=== PATIENT | female | born 1995 | race Caucasian/White ===

== ENCOUNTER 2018-02-14 21:36 | Emergency (ER) | payer OTHER ==
[2018-02-14] MEDS ORDERED: TETANUS & DIPHTHERIA TOX,ADULT 0.5 ML VIAL ONE (22:39)
[2018-02-14] MEDS ORDERED: HYDROCODONE/APAP 5/325 MG TAB ONE (22:39)
--- NOTE | 2018-02-14 23:16 | ER ---
Nurse's Notes [facility] Name: Adolph Faulkner Age: 22 yrs Sex: Female : 1995 Arrival Date: 02/14/2018 Time: 21:42 Bed 26 Private MD: Diagnosis: Bitten by cat;Puncture wound without foreign body of left hand Presentation: 02/14 21:49 Presenting complaint: Patient states: "My cat bit my left thumb this morning.". aj Transition of care: patient was not received from another setting of care. Onset of symptoms was February 14, 2018. Risk Assessment: Do you want to hurt yourself or someone else? Patient reports no desire to harm self or others. Initial Sepsis Screen: Does the patient meet any 2 criteria? No. Patient's initial sepsis screen is negative. Does the patient have a suspected source of infection? No. Patient's initial sepsis screen is negative. Care prior to arrival: None. 21:49 Method Of Arrival: Ambulatory 21:49 Acuity: FABIO 4 21:58 Note Message left on [facility] Animal [facility] answering service. Triage Assessment: 21:53 Bite description: bite sustained to dorsal aspect of distal phalanx of left thumb and aj palmar aspect of distal phalanx of left thumb is full thickness, from animal, was sustained 12-24 hours ago. by a cat, animal information: vaccination(s) is unknown. General: Appears in no apparent distress. comfortable, Behavior is agitated. Neuro: Level of Consciousness is awake, alert, obeys commands, Oriented to person, place, time, situation, Appropriate for age. Respiratory: Airway is patent Respiratory effort is even, unlabored, Respiratory pattern is regular, symmetrical. Derm: Skin is intact, is healthy with good turgor, Skin is pink, warm \\T\\ dry. normal. Injury Description: Bite sustained to dorsal aspect of distal phalanx of left thumb and palmar aspect of distal phalanx of left thumb caused by a cat, is full thickness, from animal, was sustained 12-24 hours ago. 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 - Social history:: Smoking status: Patient/guardian denies using tobacco. - Ebola Screening: : Patient negative for fever greater than or equal to 101.5 degrees Fahrenheit, and additional compatible Ebola Virus Disease symptoms Patient denies exposure to infectious person Patient denies travel to an Ebola-affected area in the 21 days before illness onset No symptoms or risks identified at this time. Screenin:08 Abuse screen: Denies threats or abuse. Nutritional screening: No deficits noted. tl3 Tuberculosis screening: No symptoms or risk factors identified. Fall Risk None identified. Assessment: 22:08 General: Appears comfortable, well groomed, well developed, well nourished, Behavior is tl3 calm, cooperative, appropriate for age. Pain: Complains of pain in palmar aspect of distal phalanx of left thumb and dorsal aspect of distal phalanx of left thumb Pain began last night. Neuro: Level of Consciousness is awake, alert, obeys commands, Oriented to person, place, time, situation, Appropriate for age. Cardiovascular: Patient's skin is warm and dry. Respiratory: Airway is patent Respiratory effort is even, unlabored, Respiratory pattern is regular, symmetrical. GI: No deficits noted. No signs and/or symptoms were reported involving the gastrointestinal system. : No deficits noted. No signs and/or symptoms were reported regarding the genitourinary system. EENT: No deficits noted. No signs and/or symptoms were reported regarding the EENT system. Derm: Skin is red, Skin temperature is warm Wound noted palmar aspect of distal phalanx of left thumb and dorsal aspect of distal phalanx of left thumb Wound is cat bite from last night. 22:12 Reassessment: pt reports that she has cleaned wound three times with hydrogen peroxide tl3 then put triple abx covered with a bandaid. pain and swelling continues. No swollen lymph nodes under left arm appreciated. Vital Signs: 21:53 BP 129 / 74; Pulse 89; Resp 18; Temp 98.9; Pulse Ox 98% on R/A; Weight 102.06 kg; aj Height 5 ft. 6 in. (167.64 cm); 23:31 BP 122 / 78; Pulse 80; Resp 18; Pulse Ox 100% on R/A; Pain 0/10; mg2 21:53 Body Mass Index 36.32 (102.06 kg, 167.64 cm) aj ED Course: 21:42 Patient arrived in ED. am2 21:47 Sudhakar Solares, RN is Primary Nurse. mg2 21:48 Serafin Altman, JLUIAN is PHCP. pm1 21:49 Trino Reddy MD is Attending Physician. pm1 21:50 Triage completed. aj 21:53 Arm band placed on right wrist. Patient placed in an exam room. aj 22:08 Patient has correct armband on for positive identification. Bed in low position. Adult tl3 w/ patient. 22:08 No provider procedures requiring assistance completed. Patient did not have IV access tl3 during this emergency room visit. 22:12 Nurse Practitioner and/or Physician Hand Twister to see patient. Serafin at bedside for tl3 assessment. 22:56 Hand Left 3 View XRAY In Process Unspecified. EDMS 23:16 Deng Stovall MD is Referral Physician. 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 Exp: mg2 03/23/2020. Lot #: [id number]. } Route: IM; Site: right deltoid; 23:31 Follow up: Response: No adverse reaction mg2 23:30 Drug: Augmentin 875 mg Route: PO; mg2 23:31 Follow up: Response: No adverse reaction; Medication administered at discharge. mg2 Outcome: 23:16 Discharge ordered by . pm1 23:31 Discharged to home ambulatory, with family. mg2 23:31 Condition: stable 23:31 Discharge instructions given to patient, family, Instructed on discharge instructions, follow up and referral plans. medication usage, Demonstrated understanding of instructions, follow-up care, medications, Prescriptions given X 2. 23:32 Patient left the ED. mg2 Signatures: Dispatcher [employer] EDVianey Cummings, RN RN aj Serafin Altman, ALARM INSTALLATION TECHNICIAN ALARM INSTALLATION TECHNICIAN pm1 Vianey Villasenor am2 Stephenie Rowell RN RN tl3 Sudhakar Solares RN RN mg2
--- NOTE | 2018-02-14 23:17 | EDPHYS ---
Physician Documentation [facility] Name: Adolph Faulkner Age: 22 yrs Sex: Female : 1995 Arrival Date: 02/14/2018 Time: 21:42 Bed 26 Private MD: ED Physician Trino Reddy HPI: 02/14 22:29 This 22 yrs old Female presents to ER via Ambulatory with complaints of Cat pm1 Bite. 22:29 The patient was bitten on the left hand and palmar aspect of distal phalanx of left pm1 thumb, by a cat, while playing, at home. Onset: The symptoms/episode began/occurred today, at 03:00. Animal information: The animal was reported to appear healthy. Animal's vaccinations are up to date. Patient's pet cat. Secondary to the bite the patient reports two puncture wounds. Associated signs and symptoms: Pertinent positives: swelling at site, Pertinent negatives: fever, motor deficit, numbness distal to wound, suspected foreign body. The patient has not experienced similar symptoms in the past. The patient has not recently seen a physician. 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 - Social history:: Smoking status: Patient/guardian denies using tobacco. - Ebola Screening: : Patient negative for fever greater than or equal to 101.5 degrees Fahrenheit, and additional compatible Ebola Virus Disease symptoms Patient denies exposure to infectious person Patient denies travel to an Ebola-affected area in the 21 days before illness onset No symptoms or risks identified at this time. ROS: 22:29 Constitutional: Negative for fever, chills, and weight loss, Eyes: Negative for injury, pm1 pain, redness, and discharge, ENT: Negative for injury, pain, and discharge, Neck: Negative for injury, pain, and swelling, Cardiovascular: Negative for chest pain, palpitations, and edema, Respiratory: Negative for shortness of breath, cough, wheezing, and pleuritic chest pain, Abdomen/GI: Negative for abdominal pain, nausea, vomiting, diarrhea, and constipation, Back: Negative for injury and pain, : Negative for injury, bleeding, discharge, and swelling. 22:29 Neuro: Negative for headache, weakness, numbness, tingling, and seizure. 22:29 MS/extremity: Positive for pain, swelling, of the palmar aspect of distal phalanx of left thumb, Negative for decreased range of motion. 22:29 Skin: Positive for puncture, of the palmar aspect of distal phalanx of left thumb. Exam: 22:29 Constitutional: This is a well developed, well nourished patient who is awake, alert, pm1 and in no acute distress. Head/Face: Normocephalic, atraumatic. Neck: Trachea midline, no thyromegaly or masses palpated, and no cervical lymphadenopathy. Supple, full range of motion without nuchal rigidity, or vertebral point tenderness. No Meningismus. Chest/axilla: Normal chest wall appearance and motion. Nontender with no deformity. No lesions are appreciated. Cardiovascular: Regular rate and rhythm with a normal S1 and S2. No gallops, murmurs, or rubs. Normal PMI, no JVD. No pulse deficits. Respiratory: Lungs have equal breath sounds bilaterally, clear to auscultation and percussion. No rales, rhonchi or wheezes noted. No increased work of breathing, no retractions or nasal flaring. Abdomen/GI: Soft, non-tender, with normal bowel sounds. No distension or tympany. No guarding or rebound. No evidence of tenderness throughout. Back: No spinal tenderness. No costovertebral tenderness. Full range of motion. 22:29 Skin: Appearance: normal except for affected area, injury, bite(s), superficial, of the palmar aspect of distal phalanx of left thumb, two puncture wounds, no indication of flexor tenosynovitis . 22:29 Neuro: Orientation: is normal, Motor: is normal, moves all fours. Vital Signs: 21:53 BP 129 / 74; Pulse 89; Resp 18; Temp 98.9; Pulse Ox 98% on R/A; Weight 102.06 kg; aj Height 5 ft. 6 in. (167.64 cm); 23:31 BP 122 / 78; Pulse 80; Resp 18; Pulse Ox 100% on R/A; Pain 0/10; mg2 21:53 Body Mass Index 36.32 (102.06 kg, 167.64 cm) aj MDM: 21:49 Patient medically screened. pm1 22:34 Data reviewed: vital signs. Data interpreted: Pulse oximetry: on room air is 98 %. pm1 Interpretation: normal. 23:16 Counseling: I had a detailed discussion with the patient and/or guardian regarding: the pm1 historical points, exam findings, and any diagnostic results supporting the discharge/admit diagnosis, radiology results, the need for outpatient follow up, for definitive care, a hand specialist, to return to the emergency department if symptoms worsen or persist or if there are any questions or concerns that arise at home. 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 Exp: mg2 03/23/2020. Lot #: [id number]. } Route: IM; Site: right deltoid; 23:31 Follow up: Response: No adverse reaction mg2 23:30 Drug: Augmentin 875 mg Route: PO; mg2 23:31 Follow up: Response: No adverse reaction; Medication administered at discharge. mg2 Disposition: 02/15 04:28 Co-signature as Attending Physician, Trino Reddy MD I agree with the assessment and tw4 plan of care. Disposition: 02/14/18 23:16 Discharged to Home. Impression: Bitten by cat, Puncture wound without foreign body of left hand. - Condition is Stable. - Discharge Instructions: Puncture Wound, Animal Bite. - Prescriptions for Augmentin 875- 125 mg Oral Tablet - take 1 tablet by ORAL route every 12 hours for 10 days; 20 tablet. Tylenol- Codeine #3 300-30 mg Oral Tablet - take 2 tablets by ORAL route every 6 hours As needed; 20 tablet. - Medication Reconciliation Form, Thank You Letter, Antibiotic Education, Prescription Opioid Use form. - Follow up: Emergency Department; When: As needed; Reason: Worsening of condition. Follow up: Deng Stovall; When: 2 - 3 days; Reason: Recheck today's complaints, Continuance of care, Re-evaluation by your physician. - Problem is new. - Symptoms have improved. Signatures: Dispatcher [employer] EDMS Vianey Pace, RN RN aj Serafin Altman, MOLDING PLASTERER MOLDING PLASTERER pm1 Trino Reddy MD MD tw4 Sudhakar Solares RN RN mg2 Corrections: (The following items were deleted from the chart) 02/14 23:32 23:16 02/14/2018 23:16 Discharged to Home. Impression: Bitten by cat; Puncture wound mg2 without foreign body of left hand. Condition is Stable. Discharge Instructions: Puncture Wound, Animal Bite. Prescriptions for Augmentin 875-125 mg Oral Tablet - take 1 tablet by ORAL route every 12 hours for 10 days; 20 tablet, Naprosyn 500 mg Oral Tablet - take 1 tablet by ORAL route 2 times per day take with food; 30 tablet. and Forms are Medication Reconciliation Form, Thank You Letter, Antibiotic Education, Prescription Opioid Use. Follow up: Emergency Department; When: As needed; Reason: Worsening of condition. Follow up: Deng Stovall; When: 2 - 3 days; Reason: Recheck today's complaints, Continuance of care, Re-evaluation by your physician. Problem is new. Symptoms have improved. pm1
--- NOTE | 2018-02-15 07:49 | RAD REPORT ---
EXAM DESCRIPTION: RAD - Hand Left 3 View - 02/14/2018 10:57 pm CLINICAL HISTORY: Animal bite to the left thumb, swelling and pain COMPARISON: None. FINDINGS: No fracture, dislocation or periosteal reaction noted. No acute bone or joint finding iden tifiable. No air or foreign body in the soft tissues of the thumb. Soft tissues do appear mildly karen atous relative to the remaining digits. IMPRESSION: Mild left thumb soft tissue swelling. No air or foreign body. No acute bone or joint finding.
== END 2018-02-14 23:32 | disposition home or self-care (01) ==
LOC: ER 21:36
DX: S61.032A Puncture wound without foreign body of left thumb without damage to nail, initial encounter (principal); W55.01XA Bitten by cat, initial encounter; Y93.89 Activity, other specified; Y92.009 Unspecified place in unspecified non-institutional (private) residence as the place of occurrence of the external cause; Z23 Encounter for immunization; I10 Essential (primary) hypertension; F31.9 Bipolar disorder, unspecified; F90.9 Attention-deficit hyperactivity disorder, unspecified type; E03.9 Hypothyroidism, unspecified
CPT/HCPCS: 90714; 99283